=== PATIENT | male | born 2000 | race Hispanic/Latino ===

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

== ENCOUNTER 2024-09-05 18:10 | Emergency (ER) | payer OTHER ==
[~2024-09-05] VITALS: Ht 160 cm; Wt 74.5 kg
[2024-09-05 18:30] VITALS: PULSE 92; RESP 18; TEMP 98.4
[2024-09-05] MEDS ORDERED: FAMOTIDINE20 MG PO (19:32)
[2024-09-05] MEDS ORDERED: TYLENOL325 MG PO (19:32)
[2024-09-05] MEDS ORDERED: MAALOX MAXIMUM355 ML PO (19:32)
[2024-09-05] MEDS ORDERED: FAMOTIDINE40 MG/5 ML PO (19:47)
[2024-09-05] MEDS ORDERED: ACETAMINOP160 MG/55 PO (19:47)
[2024-09-05 19:49] VITALS: BP 129/65; PULSE 71; RESP 18; TEMP 98.3; O2SAT 99
== END 2024-09-05 19:47 | disposition home or self-care (01) ==
LOC: FSED 18:26
DX: R30.0 Dysuria (principal); K52.9 Noninfective gastroenteritis and colitis, unspecified; M54.50 Low back pain, unspecified; F84.0 Autistic disorder
CPT/HCPCS: 74176; 81003; 99283